=== PATIENT | male | born 1965 | race Caucasian/White ===

== ENCOUNTER 2018-04-07 11:02 | Observation (INO) ==
--- NOTE | 2018-04-07 11:15 | Emergency Department Note ---
Disposition Clinical Impression: New onset a-fib, Atrial fibrillation with RVR, Pulmonary nodule Disposition: Admitted As Inpatient Condition: Good Referrals: Tiffanie Smiley, JINRIKSHA DRIVER [Primary Care Provider] - Forms: ED Satisfaction Letter Time of Disposition: 12:35 Arrhythmia/Palpitations HPI - General Chief Complaint: ED Arrhythmia/Palpitations Stated Complaint: AFIB Time Seen by Provider: 04/07/18 11:14 Source: patient, EMS Mode of arrival: ambulatory Limitations: no limitations Nursing Notes Reviewed: Yes Vital Signs Reviewed: Yes - History of Present Illness HPI Narrative: Patient is a 52-year-old male with past medical history of hypertension, diabetes. He presents today due to new onset A. fib. He was at work, had routine physical, had an EKG performed that showed A. fib RVR. Patient has been asymptomatic, denies any history of irregular heart rhythms. He states that the last time he had an EKG "was several years ago." Not on any blood thinners. No previous PR or stents. Not on any rate control medications. He denies any chest pain, shortness breath, palpitations, nausea, vomiting, fevers , diarrhea, abdominal pain, dysuria, hematuria, URI symptoms. He was sent here by his employer for further care for new onset A. fib RVR. - Related Data Home Medications Medication Instructions Recorded Confirmed Aspirin [Adult Aspirin Regimen] 81 mg PO DAILY 04/07/18 04/07/18 Lisinopril [Zestril] 2.5 mg PO DAILY 04/07/18 04/07/18 Metformin HCl [Glucophage] 1,000 mg PO BID 04/07/18 04/07/18 Pravastatin Sodium [Pravachol] 20 mg PO HS 04/07/18 04/07/18 glipiZIDE [Glucotrol] 5 mg PO DAILY 04/07/18 04/07/18 Allergies Allergy/AdvReac Type Severity Reaction Status Date / Time No Known Allergies Allergy Verified 04/07/18 11:35 All systems ED: reviewed and negative except as stated. Constitutional: Denies: fever Cardiovascular: Denies: chest pain, palpitations Respiratory: Denies: cough, dyspnea Gastrointestinal: Denies: abdominal pain, nausea, vomiting, diarrhea Genitourinary: Denies: urgency, dysuria Neurological: Denies: headache, weakness, numbness, paresthesias Past Medical History - Past Medical History Attestation: Yes The following information was validated with the patient. Source: patient Medical history: Reports: diabetes, hypertension, renal disease Psychiatric history: Reports: no psych history - Social History Smoking Status: Never smoker Smokeless Tobacco Status: No Alcohol use: Reports: occasionally Drug use: Reports: none Physical Exam - General Limitations: no limitations General appearance: alert, in no apparent distress - Head Head exam: atraumatic, normocephalic, normal inspection - Eye Eye exam: Present: normal appearance, PERRL, EOMI - ENT ENT exam: normal exam, normal oropharynx, mucous membranes moist - Neck Neck exam: Present: normal inspection, full ROM, trachea midline - Chest Chest inspection: Present: normal inspection, symmetric chest wall rise - Respiratory Respiratory exam: Present: normal lung sounds bilaterally - Cardiovascular Cardiovascular exam: Present: tachycardia, irregular rhythm, normal heart sounds - Abdominal Exam Abdominal exam: Present: soft, Non-Tender. Absent: tenderness, distention, guarding, rebound, rigidity - Extremities Exam Extremities exam: Present: normal inspection, full ROM. Absent: tenderness, pedal edema - Neurological Exam Neurological exam: Present: alert, oriented X3 - Psychiatric Psychiatric exam: Present: normal affect, normal mood - Skin Skin exam: Present: warm, dry, intact, normal color Course Course Narrative: HR in 130s, a fib on EKG with no acute ST changes. BP stable in systolic 150s. Physical exam benign, patient asymptomatic. HR is fluctuating between 110s to 140s, will give low dose cardizem bolus 5mg, start cardizem drip, give PO cardizem, and start xarelto 20mg for anticoagulation. Will run basic labs, troponin, CXR and then admit for further care. 12:34 No elevation in troponin, TSH within normal limits. No major electrolyte abnormality. Chest x-ray showed: 1. No acute cardiopulmonary disease. 2. 8 mm left upper lobe pulmonary nodule. This is favored to be a calcified granuloma. A noncontrast chest CT is recommended for further evaluation as a noncalcified nodule cannot be excluded. Discussed pulmonary nodule with the patient, recommended that he get follow-up CT scan with primary care physician. He stated that he understood this. Patient has been accepted by the hospitalist, Dr. Mcintosh, for further care. Vital Signs Temperature 98.2 F 04/07/18 11:07 Pulse Rate 131 05/31/18 11:07 Respiratory Rate 18 04/07/18 11:07 Blood Pressure 152/127 04/07/18 11:07 O2 Sat by Pulse Oximetry 98 04/07/18 11:07 Temperature 98.2 F 04/07/18 11:07 Pulse Rate 134 04/07/18 12:18 Respiratory Rate 15 04/07/18 11:53 Blood Pressure 151/106 04/07/18 11:53 O2 Sat by Pulse Oximetry 97 04/07/18 11:53 Oxygen Delivery Oxygen Delivery Room Air Arrhythmia/Palpitations - [facility] Narrative Medical decision making narrative: HR in 130s, a fib on EKG with no acute ST changes. BP stable in systolic 150s. Physical exam benign, patient asymptomatic. HR is fluctuating between 110s to 140s, will give low dose cardizem bolus 5mg, start cardizem drip, give PO cardizem, and start xarelto 20mg for anticoagulation. Will run basic labs, troponin, CXR and then admit for further care. 12:34 No elevation in troponin, TSH within normal limits. No major electrolyte abnormality. Chest x-ray showed: 1. No acute cardiopulmonary disease. 2. 8 mm left upper lobe pulmonary nodule. This is favored to be a calcified granuloma. A noncontrast chest CT is recommended for further evaluation as a noncalcified nodule cannot be excluded. Discussed pulmonary nodule with the patient, recommended that he get follow-up CT scan with primary care physician. He stated that he understood this. Patient has been accepted by the hospitalist, Dr. Mcintosh, for further care. - Medical Records Medical records reviewed: Yes I reviewed the patient's medical records. - Lab Data Lab results reviewed: Yes I reviewed the patient's lab results. Result diagrams: 04/07/18 11:30 04/07/18 11:30 Lab Results 04/07/18 04/07/18 04/07/18 Range/Units 11:30 11:30 11:30 WBC 7.0 (4.3-11.1) K/mcL RBC 4.03 L (4.19-5.50) M/mcL Hgb 13.7 (12.9-16.9) g/dL Hct 38.4 (37.5-50.1) % MCV 95.3 (83.0-100.0) fL MCH 34.0 H (28.0-33.3) pg MCHC 35.7 H (31.6-35.5) g/dL RDW 12.5 (11.5-14.5) % Plt Count 195 (140-400) K/mcL MPV 10.6 (9.4-12.4) fL Immature Gran % 0.7 (0-4) % Seg Neutrophils % 72.1 % Lymphocytes % 18.8 % Monocytes % 6.6 % Eosinophils % 1.1 % Basophils % 0.7 % Neutrophils # 5.0 (1.6-8.9) K/mcL Lymphocytes # 1.3 (0.6-4.6) K/mcL Monocytes # 0.5 (0.0-1.3) K/mcL Eosinophils # 0.1 (0.0-0.6) K/mcL Basophils # 0.1 (0.0-0.2) K/mcL Nucleated RBCs/100 WBC 0.3 H (0) /100 WBC PT 10.4 (9.4-12.1) Seconds INR 1.0 APTT 28.5 (26.0-36.0) Seconds Sodium 136 (136-145) mEq/L Potassium 4.4 (3.5-5.1) mEq/L Chloride 103 (98-107) mEq/L Carbon Dioxide 23 (23-29) mEq/L BUN 11 (6-20) mg/dL Creatinine 1.02 (0.70-1.30) mg/dL Est GFR ( Amer) > 60 (> 60) Est GFR (Non-Af Amer) > 60 (> 60) BUN/Creatinine Ratio 11 (6-26) Glucose 179 H (70-105) mg/dL Calculated Osmolality 286 (280-300) Calcium 9.4 (8.6-10.3) mg/dL Magnesium 1.4 L (1.6-2.6) mg/dL Troponin I < 0.03 (< 0.04) ng/mL TSH 2.087 (0.340-5.600) mcIU/mL - Radiology Data Radiology results reviewed: Yes I reviewed the patient's radiology results. - EKG Data EKG attestation: Yes I reviewed and interpreted this EKG. EKG results narrative: Apr 07 2018 at 11:06. A. fib with RVR. Rate 133. QRS 130. QTC 394. Normal axis. Right bundle branch block present. No acute ST elevation or depression. S.B.A.R. - S.B.A.R. Situation: Demographics, MOA Background: Presenting Complaint, Relevant PMH, Meds, & Allergies Assessment: Vital Signs, Course and respsone to treatment, Exam Concerns, Patient/Family Expectation, Pertinant Lab Results Recommendation: Barrier(s) to disposition, Recommendation based on pending studies, treatments, or consults S.B.A.R. Report Given to:
[2018-04-07] MEDS ORDERED: *HR* Rivaroxaban 10 MG TABLET PO ONE (11:25)
--- NOTE | 2018-04-07 11:41 | Emergency Department Note ---
Disposition Clinical Impression: New onset a-fib, Atrial fibrillation with RVR, Pulmonary nodule Disposition: Admitted As Inpatient Condition: Good Referrals: Tiffanie Smiley, REPAIR SERVICE CLERK [Primary Care Provider] - Forms: ED Satisfaction Letter General Adult HPI - General Chief complaint: ED Arrhythmia/Palpitations Stated complaint: AFIB Time Seen by Provider: 04/07/18 11:14 Source: patient, EMS Mode of arrival: ambulatory Limitations: no limitations Nursing Notes Reviewed: Yes Vital Signs Reviewed: Yes - History of Present Illness HPI Narrative: This documentation is done with the assistance of Dragon dictation. Despite efforts made to ensure accuracy, there may be inaccuracies in hvac sheet metal installer or spelling and typographical errors. I examined this patient and my medical decision-making was reviewed with the Resident Physician. I agree with the documented findings, disposition and treatment plan as described except to the extent set forth below. Patient seen and evaluated by Dr. Lange and myself along with EMS, I agree with his evaluation and treatment plan, supervised care the patient's stay. Patient is a work getting a work clearance physical elevated him have her rapid heart rate with atrial fibrillation. According to him he is asymptomatic not short of breath no chest pain not feel anything unusual. There have been diagnosed with this before so were going to do a cardiac workup on him start him on Cardizem both oral and IV and then he will need admission. He is in agreement with this plan. Pain Scale: 0 - Related Data Home Medications Medication Instructions Recorded Confirmed Aspirin [Adult Aspirin Regimen] 81 mg PO DAILY 04/07/18 04/07/18 Lisinopril [Zestril] 2.5 mg PO DAILY 04/07/18 04/07/18 Metformin HCl [Glucophage] 1,000 mg PO BID 04/07/18 04/07/18 Pravastatin Sodium [Pravachol] 20 mg PO HS 04/07/18 04/07/18 glipiZIDE [Glucotrol] 5 mg PO DAILY 04/07/18 04/07/18 Allergies Allergy/AdvReac Type Severity Reaction Status Date / Time No Known Allergies Allergy Verified 04/07/18 11:35 Past Medical History - Past Medical History Medical history: Reports: diabetes, hypertension, renal disease Psychiatric history: Reports: no psych history - Social History Smoking Status: Never smoker Smokeless Tobacco Status: No Alcohol use: Reports: occasionally Drug use: Reports: none Physical Exam - General Limitations: no limitations General appearance: alert, in no apparent distress Course Vital Signs Temperature 98.2 F 04/07/18 11:07 Pulse Rate 131 04/07/18 11:07 Respiratory Rate 18 04/07/18 11:07 Blood Pressure 152/127 04/07/18 11:07 O2 Sat by Pulse Oximetry 98 04/07/18 11:07 Temperature 98.2 F 04/07/18 11:07 Pulse Rate 134 04/07/18 12:18 Respiratory Rate 15 04/07/18 11:53 Blood Pressure 151/106 04/07/18 11:53 O2 Sat by Pulse Oximetry 97 04/07/18 11:53 Oxygen Delivery Oxygen Delivery Room Air Medical Decision Making - MDM Narrative Medical decision making narrative: Chest X-Ray 04/07/18 11:15 IMPRESSION: 1. No acute cardiopulmonary disease. 2. 8 mm left upper lobe pulmonary nodule. This is favored to be a calcified granuloma. A noncontrast chest CT is recommended for further evaluation as a noncalcified nodule cannot be excluded. D/ / Froy Santillan MD / Froy Santillan MD Interpreting Provider: Froy Santillan MD 1236 hrs.: Patient's A. fib when in the 90s now after getting Cardizem. On his chest x-ray there is a nodule that will need to be looked at further with admission. Discussed admission with him he is in agreement with plan. Impressions acute onset atrial fibrillation questionable duration. And left upper lobe pulmonary nodule. Patient stable at this time and admitted. - Lab Data Result diagrams: 04/07/18 11:30 04/07/18 11:30 Lab Results 04/07/18 04/07/18 04/07/18 Range/Units 11:30 11:30 11:30 WBC 7.0 (4.3-11.1) K/mcL RBC 4.03 L (4.19-5.50) M/mcL Hgb 13.7 (12.9-16.9) g/dL Hct 38.4 (37.5-50.1) % MCV 95.3 (83.0-100.0) fL MCH 34.0 H (28.0-33.3) pg MCHC 35.7 H (31.6-35.5) g/dL RDW 12.5 (11.5-14.5) % Plt Count 195 (140-400) K/mcL MPV 10.6 (9.4-12.4) fL Immature Gran % 0.7 (0-4) % Seg Neutrophils % 72.1 % Lymphocytes % 18.8 % Monocytes % 6.6 % Eosinophils % 1.1 % Basophils % 0.7 % Neutrophils # 5.0 (1.6-8.9) K/mcL Lymphocytes # 1.3 (0.6-4.6) K/mcL Monocytes # 0.5 (0.0-1.3) K/mcL Eosinophils # 0.1 (0.0-0.6) K/mcL Basophils # 0.1 (0.0-0.2) K/mcL Nucleated RBCs/100 WBC 0.3 H (0) /100 WBC PT 10.4 (9.4-12.1) Seconds INR 1.0 APTT 28.5 (26.0-36.0) Seconds Sodium 136 (136-145) mEq/L Potassium 4.4 (3.5-5.1) mEq/L Chloride 103 (98-107) mEq/L Carbon Dioxide 23 (23-29) mEq/L BUN 11 (6-20) mg/dL Creatinine 1.02 (0.70-1.30) mg/dL Est GFR ( Amer) > 60 (> 60) Est GFR (Non-Af Amer) > 60 (> 60) BUN/Creatinine Ratio 11 (6-26) Glucose 179 H (70-105) mg/dL Calculated Osmolality 286 (280-300) Calcium 9.4 (8.6-10.3) mg/dL Magnesium 1.4 L (1.6-2.6) mg/dL Troponin I < 0.03 (< 0.04) ng/mL TSH 2.087 (0.340-5.600) mcIU/mL Critical Care Time Critical Care Time: Yes Total Critical Care Time: 30 Attestation: Excluding any separately billable procedures
[2018-04-07 11:45] LABS: Basophils # 0.1 K/mcL (0.0-0.2); Basophils % 0.7 %; Eosinophils # 0.1 K/mcL (0.0-0.6); Eosinophils % 1.1 %; Hematocrit 38.4 % (37.5-50.1); Hemoglobin 13.7 g/dL (12.9-16.9); Immature Granulocytes % 0.7 % (0-4); Lymphocytes # 1.3 K/mcL (0.6-4.6); Lymphocytes % 18.8 %; Mean Corpuscular HGB Conc 35.7 g/dL (31.6-35.5); Mean Corpuscular Volume 95.3 fL (83.0-100.0); Mean Platelet Volume 10.6 fL (9.4-12.4); Monocytes # 0.5 K/mcL (0.0-1.3); Monocytes % 6.6 %; Nucleated Red Blood Cells 0.3 /100 WBC (0); Platelet Count 195 K/mcL (140-400); Red Blood Count 4.03 M/mcL (4.19-5.50); Red Cell Distribution Width 12.5 % (11.5-14.5); Segmented Neutrophils % 72.1 %
[2018-04-07 11:53] LABS: Prothrombin Time 10.4 Seconds (9.4-12.1)
[2018-04-07 11:54] LABS: Activated Partial Thrombo Time 28.5 Seconds (26.0-36.0)
[2018-04-07 12:24] LABS: Troponin I < 0.03 ng/mL (< 0.04)
[2018-04-07 12:25] LABS: BUN/Creatinine Ratio 11 (6-26); Blood Urea Nitrogen 11 mg/dL (6-20); Calcium 9.4 mg/dL (8.6-10.3); Carbon Dioxide 23 mEq/L (23-29); Chloride 103 mEq/L (98-107); Glucose 179 mg/dL (70-105); Magnesium 1.4 mg/dL (1.6-2.6); Osmolality,Calculated 286 (280-300); Potassium 4.4 mEq/L (3.5-5.1); Sodium 136 mEq/L (136-145); Thyroid Stimulating Hormone 2.087 mcIU/mL (0.340-5.600); eGFR For African Americans > 60 (> 60); eGFR For Non-African Americans > 60 (> 60)
[2018-04-07] MEDS ORDERED: *HR* HYDROcodone/Acet 5/325 mg TABLET PO PRN (13:01)
[2018-04-07] MEDS ORDERED: *HR* Dextrose 50 % in Water (Syg) 50 ML SYRINGE IVP PRN (13:01)
[2018-04-07] MEDS ORDERED: Acetaminophen 325 MG TABLET PO PRN (13:01)
[2018-04-07] MEDS ORDERED: D5% in Water 1,000 ML IVC PRN (13:01)
[2018-04-07] MEDS ORDERED: Naloxone 0.4 MG/ML INJ IVP PRN (13:01)
[2018-04-07] MEDS ORDERED: *HR* OxyCODONE Immed Rel 5 MG TABLET PO PRN (13:01)
[2018-04-07] MEDS ORDERED: Dextrose Gel 15 GM/37.5 ML TUBE PO PRN ×2 (13:01)
--- NOTE | 2018-04-07 13:09 | Internal Med History&Physical ---
Date of Encounter: 04/07/18 Time of Encounter: 13:07 Internal Medicine - H&P: HPI Chief complaint: Atrial fibrillation Admitted From: Emergency Dept History of present illness: Mr. Martell is a 52 year old male with a past medical history of hypertension, diabetes type 2 not insulin-dependent and hyperlipidemia who came to the emergency room after he was evaluated for physical where he was found to have A. fib with RVR on EKG, the heart rate was up to 160s. The patient has been completely asymptomatic denies any chest pain, shortness of breath, no signs of infection. Glucose is 179 magnesium 1.4 chest x-ray shows an 8 mm left upper lobe pulmonary nodule likely calcified granuloma, he was started on a Cardizem drip and was given xarelto at the emergency room. Heart rate is currently in the 80s. TSH is 2.087 Past Med Surg Social Fam HX - Past Medical History Medical history: diabetes (Not insulin-dependent), hyperlipidemia, hypertension Psychiatric history: no psych history - Past Surgical History Surgical History: other (ACL repair on the left lower extremity, also left lower extremity reconstruction after an accident/fracture) - Social History Smoking Status: Never smoker Smokeless Tobacco Status: No Alcohol use: occasionally Drug use: none - Additional Family History Additional family history: Mother with CHF, father with diabetes, hypertension and dementia Internal Medicine - H&P: Meds Aspirin [Adult Aspirin Regimen] 81 mg PO DAILY 04/07/18 [History] Lisinopril [Zestril] 2.5 mg PO DAILY 04/07/18 [History] Metformin HCl [Glucophage] 1,000 mg PO BID 04/07/18 [History] Pravastatin Sodium [Pravachol] 20 mg PO HS 04/07/18 [History] glipiZIDE [Glucotrol] 5 mg PO DAILY 04/07/18 [History] 3 Allergy/AdvReac Type Severity Reaction Status Date / Time No Known Allergies Allergy Verified 04/07/18 11:35 All Systems PM: A 10-system review of systems was performed and is negative for pertinent findings except as documented above in the HPI. Review of systems: No chest pain, shortness of breath, other systems out of the 10 reviewed were negative - Constitutional Vitals: Temp Pulse Resp BP Pulse Ox 98.2 F 73 15 120/69 95 04/07/18 11:07 04/07/18 12:53 04/07/18 12:53 04/07/18 12:53 04/07/18 12:53 General appearance: Present: A&O X 3 - Head Head exam: Present: atraumatic, normocephalic - Eye Eye exam: Present: PERRL, conjuntiva pink, sclera anicteric Pupils: Present: PERRL - Neck Neck exam general surgery: Present: supple, trachea midline. Absent: lymphadenopathy - Respiratory Respiratory exam: Present: CTAB. Absent: accessory muscle use, rales, rhonchi, wheezes - Cardiovascular Cardiovascular exam: Present: RRR, +S1, +S2. Absent: diastolic murmur, gallop, rubs, systolic murmur - GI/Abdominal GI/Abdominal exam: Present: normal bowel sounds, soft, no peritoneal signs. Absent: distended, tenderness - Extremities Exam Extremities exam: Present: warm, radial pulses palpable and symmetrical. Absent : calf tenderness, cyanotic, pedal edema - Neurological Exam Neurological exam: Present: CN II-XII intact, oriented X3, no focal deficits. Absent: pronater drift, facial droop, speech deficit - Skin Skin exam: Present: dry, intact Internal Med - H&P Results - Labs CBC & Chem 7: 04/07/18 11:30 04/07/18 11:30 - Assessment and plan (1) New onset a-fib Current Visit: Yes Status: Acute Assessment and plan: Unclear etiology for A. fib with RVR Continue Cardizem drip, [id number] vasc: 2 (HTN, DM) May benefit from anticoagulation, was given one time Xarleto at the ER, may continue as outpatient Order ECHO, telemetry, cardiology consult Omeprazole for GI prophylaxis and xarelto for DVT prophylaxis, the patient will be admitted for observation. Full code. Time spent on this admission 40 minutes (2) Hypertension Current Visit: Yes Status: Acute Assessment and plan: Hydralazine as needed Qualifiers: Hypertension type: essential hypertension Qualified Code(s): I10 - Essential (primary) hypertension (3) Hyperlipidemia Current Visit: Yes Status: Acute Qualifiers: Hyperlipidemia type: unspecified Qualified Code(s): E78.5 - Hyperlipidemia , unspecified (4) Atrial fibrillation with RVR Current Visit: Yes Status: Acute (5) Pulmonary nodule Current Visit: Yes Status: Acute Assessment and plan: Follow-up as an outpatient with CT scan (6) Diabetes Current Visit: Yes Status: Acute Assessment and plan: Insulin sliding scale Qualifiers: Diabetes mellitus type: type 2 Diabetes 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
[2018-04-07] MEDS ORDERED: 0.9 % Sodium Chloride 1,000 ML IVC SCH (13:15)
--- NOTE | 2018-04-07 13:28 | Cardiology Consult Note ---
Date of Encounter: 04/07/18 Time of Encounter: 13:30 Assessment and Plan (1) New onset a-fib Current Visit: Yes Status: Acute Per Cardiology: Apparent new onset A. fib. Patient asymptomatic. Unknown duration. Tsh ok. Trop negative. BNP ok. On IV Cardizem gtt. at 10 mg per hour area current heart rate in the 70s/atrial flutter. We will attempt to wean off IV Cardizem drip. We will start Cardizem 30 mg by mouth every 6 hours and adjust accordingly. We will discontinue FRANCISCO inhibitor for now. Nothing to eat after midnight for potential KULDIP cardioversion tomorrow if clinically warranted. Echo pending. Patient possibly has untreated obstructive sleep apnea, recommend outpatient sleep study. Regarding long-term anticoagulation, [id number] = 2. Received Xarelto 20 mg today already. Patient agreeable to continue for anticoagulation. (2) Hypomagnesemia Current Visit: Yes Status: Acute Per Cardiology: Mg 1.4, will replace. On Mg Oxide as well. Discussion w patient/family: The assessment and plan as outlined above was discussed with the patient and/or family members who expressed understanding and agreement. All questions were answered. Thank you for involving us in the care of your patient. Please call with any questions. History of Present Illness Consult date: 04/07/18 Requesting physician: Javier Rodriguez Consult reason: afib Chief complaint: Afib History of present illness: Mr. Martell is a 52 year old male with a relevant past history of DM 2, hypertension, hyperlipidemia. Cardiology consult for A. fib with RVR. Patient reports he presented for employment physical and found to have heart rhythm with ECG showing A. fib in the 140s. Patient denies any symptoms-- he denies any shortness of breath, palpitations, dizziness, syncope, falls. Denies any fatigue or chest pain symptoms with exertion. Denies any past history of atrial fibrillation. Reports history of snoring and a couple times a week and at night gasping for air. Denies any known history of obstructive sleep apnea. He denies any active bleeding or blood loss. He reports very active with work and walks frequently. Past Med Surg Social Fam HX - Past Medical History Attestation: Yes The following information was validated with the patient. Source: patient, old records reviewed Medical history: diabetes (Not insulin-dependent), hyperlipidemia, hypertension Psychiatric history: no psych history - Past Surgical History Surgical History: other (ACL repair on the left lower extremity, also left lower extremity reconstruction after an accident/fracture) - Social History Smoking Status: Never smoker Smokeless Tobacco Status: No Alcohol use: occasionally Drug use: none Medications and Allergies Aspirin [Adult Aspirin Regimen] 81 mg PO DAILY 04/07/18 [History] Lisinopril [Zestril] 2.5 mg PO DAILY 04/07/18 [History] Metformin HCl [Glucophage] 1,000 mg PO BID 04/07/18 [History] Pravastatin Sodium [Pravachol] 20 mg PO HS 04/07/18 [History] glipiZIDE [Glucotrol] 5 mg PO DAILY 04/07/18 [History] 3 Allergy/AdvReac Type Severity Reaction Status Date / Time No Known Allergies Allergy Verified 04/07/18 11:35 All Systems Review: The remainder of the systems were reviewed and are negative - Cardiovascular Cardiovascular: as per HPI, irregular heart rhythm Physical Examination Vital Signs, Last 4 Hours Pulse Resp BP Pulse Ox 04/07/18 12:53 73 15 120/69 95 General: Conversant, No Apparent Distress HEENT: Atraumatic, Normocephaly, Mucus Membranes Moist Neck: No JVD, Normal carotid pulses Cardiac: Reg Rate and Rhythm, Normal S1 and S2, No Murmur Lungs: Normal Breath Sounds, No Wheeze, Rales, Rhonchi Neuro: Alert and responsive, No focal deficits noted Abdomen: Soft, Non-Tender Skin: No rashes noted on visualized skin Musculoskeletal: No Chest Wall Tenderness Extremities: No Clubbing, No Cyanosis, No Edema, Normal Pulses Results 04/07/18 11:30 04/07/18 11:30 Laboratory Tests 04/07/18 04/07/18 11:30 11:30 INR 1.0 Creatinine 1.02 Est GFR (Non-Af Amer) > 60 Magnesium 1.4 L Troponin I < 0.03 TSH 2.087 ITS Impressions Chest X-Ray 04/07/18 11:15 IMPRESSION: 1. No acute cardiopulmonary disease. 2. 8 mm left upper lobe pulmonary nodule. This is favored to be a calcified granuloma. A noncontrast chest CT is recommended for further evaluation as a noncalcified nodule cannot be excluded. D/ / Froy Santillan MD / Froy Santillan MD Interpreting Provider: Froy Santillan MD Active Medications Acetaminophen (Tylenol) 650 mg PO Q6HR PRN PRN Reason: Mild Pain/Fever Stop: 10/07/18 13:02 Hydrocodone Bitart/Acetaminophen ([place] 5-325 Mg) 1 tab PO Q6HR PRN PRN Reason: Moderate Pain Stop: 10/07/18 13:02 Dextrose/Water (Dextrose 50% (Syg)) 25 ml IVP AD PRN PRN Reason: Hypoglycemia Stop: 10/07/18 13:02 Glucagon (Glucagen) 1 mg IM ONCE PRN PRN Reason: Hypoglycemia Stop: 10/07/18 13:02 Glucose (Gluctose) 15 gm PO ONCE PRN PRN Reason: Hypoglycemia Stop: 10/07/18 13:02 Glucose (Gluctose) 30 gm PO ONCE PRN PRN Reason: Hypoglycemia Stop: 10/07/18 13:02 Hydralazine HCl (Hydralazine) 10 mg IVP Q6HR PRN PRN Reason: Hypertension Stop: 10/07/18 13:05 Diltiazem HCl 125 mg/ Sodium (Chloride) 125 mls @ 5 mls/hr IVC .Q24H CYNTHIA; 5 MG/ HR PRN Reason: Protocol Stop: 10/07/18 11:31 Last Titration: 04/07/18 12:18 Dose: 10 mg/hr, 10 mls/hr Sodium Chloride (0.9 % Sodium Chloride) 1,000 mls @ 75 mls/hr IVC .[id number] CYNTHIA Stop: 04/08/18 15:54 Dextrose (Dextrose 5%) 1,000 mls @ 100 mls/hr IVC .Q10H PRN PRN Reason: HYPOGLYCEMIA Stop: 10/07/18 13:02 Insulin Human Lispro (Humalog) 0 units SQ TIDAC CYNTHIA PRN Reason: Protocol Stop: 10/07/18 16:31 Insulin Human Lispro (Humalog) 0 units SQ HS CYNTHIA PRN Reason: Protocol Stop: 10/07/18 21:01 Lisinopril (Zestril) 2.5 mg PO DAILY CYNTHIA PRN Reason: Protocol Stop: 10/08/18 09:01 Magnesium Oxide (Mag-Ox) 400 mg PO BID CYNTHIA PRN Reason: Protocol Stop: 10/07/18 13:01 Naloxone HCl (Narcan) 0.4 mg IVP Q2MIN PRN PRN Reason: SEE COMMENTS Stop: 10/07/18 13:02 Omeprazole (Prilosec) 40 mg PO DAILY@0630 CYNTHIA PRN Reason: Protocol Stop: 10/08/18 06:31 Oxycodone HCl (Roxicodone) 10 mg PO Q6HR PRN PRN Reason: Severe Pain Stop: 10/07/18 13:02 Simvastatin (Zocor) 10 mg PO HS CYNTHIA Stop: 10/07/18 21:01 - Imaging and Cardiology Echo: pending - EKG Interpretation EKG results cardiology: other (Atrial flutter on telemetry in the 70s, no ECG available for review, will obtain) Consult Discharge Plan - Plan Referrals: Tiffanie Smiley, STUDENT ADVISOR [Primary Care Provider] -
[2018-04-07] MEDS: Magnesium Oxide 400 MG TABLET PO SCH ×2 (13:58→21:57)
--- NOTE | 2018-04-07 15:03 | Event Note ---
Date of Encounter: 04/07/18 Time of Encounter: 15:00 - Cardiology Event Note Tele now shows SR 70's.
[2018-04-07] MEDS: Insulin LISPRO 300 UNITS/3 ML VIAL SQ SCH (18:12)
[2018-04-07 18:43] LABS: Bilirubin,Urine Negative (Negative); Blood,Urine Negative (Negative); Clarity,Urine Clear (Clear); Color,Urine Yellow (Yellow); Glucose,Urine (UA) 500 mg/dL (Normal); Ketones,Urine Negative (Negative); Leukocyte Esterase,Urine Negative (Negative); Nitrite,Urine Negative (Negative); Protein,Urine Negative (Neg-Trace); Urobilinogen,Urine Normal (Normal)
[2018-04-07] MEDS ORDERED: Insulin LISPRO 300 UNITS/3 ML VIAL SQ SCH (21:00)
[2018-04-08 06:11] LABS: BUN/Creatinine Ratio 11 (6-26); Blood Urea Nitrogen 11 mg/dL (6-20); Calcium 9.1 mg/dL (8.6-10.3); Carbon Dioxide 26 mEq/L (23-29); Chloride 102 mEq/L (98-107); Glucose 184 mg/dL (70-105); Magnesium 1.7 mg/dL (1.6-2.6); Osmolality,Calculated 286 (280-300); Potassium 4.2 mEq/L (3.5-5.1); Sodium 136 mEq/L (136-145); eGFR For African Americans > 60 (> 60); eGFR For Non-African Americans > 60 (> 60)
[2018-04-08 08:15] VITALS: BP 128/84
[2018-04-08] MEDS: Insulin LISPRO 300 UNITS/3 ML VIAL SQ SCH (08:28)
[2018-04-08] MEDS: Magnesium Oxide 400 MG TABLET PO SCH (08:28)
--- NOTE | 2018-04-08 10:55 | Cardiology Progress Note ---
Date of Encounter: 04/08/18 Time of Encounter: 10:30 Assessment and Plan (1) New onset a-fib Current Visit: Yes Status: Acute Per Cardiology: Apparent new onset A. fib. Patient asymptomatic. Unknown duration. Tsh ok. Trop negative. BNP ok. Converted to NSR yesterday evening. Will change cardizem to long acting today. TTE demonstrated normal LVEF with no significant valvular dysfunction and normal wall motion. Regarding long-term anticoagulation, [id number] = 2, started on Xarelto 20 mg daily in ED. Will obtain cook check and provide savings card for 30 day supply. Recommend outpatient sleep study for FELIPA evaluation. Will coordinate outpatient follow-up. Discussion w patient/family: The assessment and plan as outlined above was discussed with the patient and/or family members who expressed understanding and agreement. All questions were answered. Thank you for involving us in the care of your patient. Please call with any questions. The patient will be discussed and reviewed with Dr. Fraser; changes to be made accordingly. Subjective Principal diagnosis: New onset afib Interval history: Seen and examined. Patient presented with asymptomatic atrial fibrillation with RVR. No complaints overnight. Objective Vital Signs, Last 4 Hours Temp Pulse Resp BP Pulse Ox 04/08/18 08:36 96 04/08/18 08:09 97.7 F 73 16 128/84 96 General: Conversant, No Apparent Distress HEENT: Atraumatic, Normocephaly, Mucus Membranes Moist Cardiac: Reg Rate and Rhythm, Normal S1 and S2 Lungs: Normal Breath Sounds Neuro: Alert and responsive Abdomen: Soft Skin: No rashes noted on visualized skin Musculoskeletal: No Chest Wall Tenderness Extremities: No Edema, Normal Pulses Results 04/07/18 11:30 04/08/18 05:04 Lab Results 04/08/18 05:04 Sodium 136 Potassium 4.2 Chloride 102 Carbon Dioxide 26 BUN 11 Creatinine 1.00 Glucose 184 H Calcium 9.1 Magnesium 1.7 - Imaging and Cardiology Echo: report reviewed Other Results: 12 hour tele: avg HR=69 SR. - EKG Interpretation EKG results cardiology: personally reviewed Consult Discharge Plan - Plan Referrals: Tiffanie Smiley, AIRPORT OPERATIONS OFFICER [Primary Care Provider] - Prescriptions: Diltiazem CD (24hr) [Cardizem CD] 120 mg PO DAILY #30 cap.er.24h Rivaroxaban [Xarelto] 20 mg PO DAILY #30 tablet
--- NOTE | 2018-04-08 11:32 | Discharge Summary ---
- NOTES TO OUTPATIENT PROVIDER Notes to Outpatient Provider: Admitted for new onset Afib, now rate controlled on cardizem, discharged home on Cardizem CD 120mg daily, as well as Xarelto 20mg daily for anticoagulation. Follow-up with cardiology and primary care physician. Date of Encounter: 04/08/18 Time of Encounter: 11:30 - Discharge Diagnosis (1) New onset a-fib Priority: Primary Status: Acute (2) Atrial fibrillation with RVR Priority: Primary Status: Resolved (3) Pulmonary nodule Priority: Secondary Status: Chronic (4) Hypertension Priority: Secondary Status: Chronic Qualifiers: Hypertension type: essential hypertension Qualified Code(s): I10 - Essential (primary) hypertension (5) Hyperlipidemia Priority: Secondary Status: Chronic Qualifiers: Hyperlipidemia type: unspecified Qualified Code(s): E78.5 - Hyperlipidemia , unspecified (6) Diabetes Priority: Secondary Status: Chronic Qualifiers: Diabetes mellitus type: type 2 Diabetes mellitus supervisor intermediates insulin use: without longterm use Diabetes mellitus complication status: without complication Qualified Code(s): E11.9 - Type 2 diabetes mellitus without complications (7) Hypomagnesemia Priority: Primary Status: Resolved Hospital course: Mr. Martell is a 52 year old male with medical history of hypertension, type 2 diabetes mellitus, hyperlipidemia, obesity, who presented to the emergency room for asymptomatic newly diagnosed atrial fibrillation with rapid ventricular response. Heart rate was in the 160s upon presentation. The patient was asymptomatic, however, magnesium was low at 1.4. Workup further revealed left upper lobe pulmonary nodule likely chronic calcified granuloma. The patient was started on Cardizem drip and Xarelto and admitted to the hospital for rate control. Thyroid function tests, lipid panel, CBC, chemistry, BNP, echocardiogram, troponin were negative. Cardiology was consulted, patient has since converted on Cardizem, and has been started on anticoagulation based on the chads score of 2. He is discharged on Cardizem by mouth and Xarelto. He is seen and examined at the bedside this morning, he is ambulatory, asymptomatic and medically stable to be discharged home. Discharge discussed with: patient, nurse, case management, data consultant - Time Spent with Patient Total time spent providing and/or coordinating discharge services: Greater than 30 minutes - Discharge Medications Prescriptions: Diltiazem CD (24hr) [Cardizem CD] 120 mg PO DAILY #30 cap.er.24h Rivaroxaban [Xarelto] 20 mg PO DAILY #30 tablet Home Medications: Aspirin [Adult Aspirin Regimen] 81 mg PO DAILY 04/07/18 [History] Lisinopril [Zestril] 2.5 mg PO DAILY 04/07/18 [History] Metformin HCl [Glucophage] 1,000 mg PO BID 04/07/18 [History] Pravastatin Sodium [Pravachol] 20 mg PO HS 04/07/18 [History] glipiZIDE [Glucotrol] 5 mg PO DAILY 04/07/18 [History] Diltiazem CD (24hr) [Cardizem CD] 120 mg PO DAILY #30 cap.er.24h 04/08/18 [Rx] Rivaroxaban [Xarelto] 20 mg PO DAILY #30 tablet 04/08/18 [Rx] Allergies/Adverse Reactions: 3 Allergy/AdvReac Type Severity Reaction Status Date / Time No Known Allergies Allergy Verified 04/07/18 11:35 Date of admission: 04/07/18 18:22 Primary care physician: Tiffanie Smiley NECK FITTER Discharging clinician: Socrates Viveros Anticipated date of discharge: 04/08/18 - Constitutional Vitals: Temp Pulse Resp BP Pulse Ox 97.7 F 73 16 128/84 96 04/08/18 08:09 04/08/18 08:09 04/08/18 08:09 04/08/18 08:09 04/08/18 08:36 General appearance: Present: A&O X 3, pleasant, no acute distress - Head Head exam: Present: atraumatic, normocephalic - Eye Eye exam: Present: PERRL, conjuntiva pink, sclera anicteric Pupils: Present: PERRL - Neck Neck exam general surgery: Present: supple, trachea midline. Absent: lymphadenopathy - Respiratory Respiratory exam: Present: CTAB. Absent: accessory muscle use, rales, rhonchi, wheezes - Cardiovascular Cardiovascular exam: Present: irregular rhythm, +S1, +S2. Absent: diastolic murmur, gallop, rubs, systolic murmur - GI/Abdominal GI/Abdominal exam: Present: normal bowel sounds, soft, no peritoneal signs. Absent: distended, tenderness - Extremities Exam Extremities exam: Present: warm, radial pulses palpable and symmetrical. Absent : calf tenderness, cyanotic, pedal edema - Neurological Exam Neurological exam: Present: alert, CN II-XII intact, oriented X3, no focal deficits. Absent: pronater drift, facial droop, speech deficit - Skin Skin exam: Present: dry, intact - Patient Status Disposition: Home, Self-Care Condition: Good Functional capacity at discharge: independent ambulation Overall status at discharge: patient is back to baseline - Discharge Instructions Instructions: Atrial Fibrillation (DC), Chronic Hypertension (DC) Follow Up With: Tiffanie Smiley, NECK FITTER [Primary Care Provider] - - Diet and Activity Activity: resume usual activities as tolerated Diet: diabetic diet, low fat, low cholesterol, low salt diet
[2018-04-08] MEDS ORDERED: Diltiazem CD (24hr) 120 MG CAPSULE PO SCH (12:00)
[2018-04-08] MEDS ORDERED: *HR* Rivaroxaban 10 MG TABLET PO SCH (17:00)
--- NOTE | 2018-04-08 18:02 | Electrocardiograph Report ---
[facility] Test Date: 2018-04-07 Pat Name: Fab Martell Department: 103 Room: 2A48 Gender: M Book Trimmer: BANDAR BAZANB: 1965 Requested By: Manuel Olmos Order Number: [id number] Reading MD: Ajit Roa Measurements Intervals [place] Rate: 133 P: [place]: 0 QRS: 83 QRSD: 130 T: -14 QT: 316 QTc: 394 Interpretive Statements ATRIAL FIBRILLATION WITH RAPID VENTRICULAR RESPONSE RIGHT BUNDLE BRANCH BLOCK [120+ ms QRS DURATION, UPRIGHT V1, 40+ ms S IN I/aVL/V4/V5/V6] INTERPRETATION BASED ON A DEFAULT AGE OF 40 YEARS Electronically Signed On 04-08-2018 18:01:02 EDT by Ajit Roa
--- NOTE | 2018-04-10 11:02 | Electrocardiograph Report ---
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
--- NOTE | 2018-04-10 11:03 | Electrocardiograph Report ---
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
== END 2018-04-08 11:53 | disposition home or self-care (01) | DRG 310 ==
LOC: 2ANU 11:02 → EMEROO 11:02 → 2ANU 13:24
PROVIDERS: ADMIT Internal Medicine; ATTEND Internal Medicine